=== PATIENT | male | born 1975 | race Caucasian/White ===

== ENCOUNTER 2018-08-07 14:43 | Emergency (ER) | payer MEDICAID ==
[2018-08-07] MEDS ORDERED: NS 500 ML IV ONE (15:45)
--- NOTE | 2018-08-07 15:46 | EDPHY ---
H & P Time Seen by Provider: 08/07/18 15:34 HPI/ROS: CHIEF COMPLAINT: Lumps in my arm pits for months HISTORY OF PRESENT ILLNESS: Patient presents with painful lumps in both armpits for the last several months. He has had multiple attempted drainage and was told the past he needs a surgical procedure to definitively corrected. He presents today with worsening swelling and pain especially in the left arm PICC greater than the right. Not associated with fever or chills or trauma or drainage or weakness or numbness in either arm. Secondary complaint dizzy"feels like crap"after dialysis today. He had a little bit of a cough for the last couple of days, had a 4 hr run, just feels fatigued very tired and dizzy and lightheaded. His weight is at baseline. His run today was about normal for him at dialysis. He has not missed any recent appointments. REVIEW OF SYSTEMS: Eye: no change in vision ENT: no sore throat Cardiac: no chest pain or syncope Pulmonary: No sputum production, shortness of breath, no fever or chills Abdomen: no vomiting, diarrhea, abdominal pain Musculoskeletal: no back pain Skin: As in HPI Neuro: no headache Constitutional: no fever : no urinary symptoms A comprehensive 10 point review of systems is otherwise negative aside from elements mentioned in the history of present illness. PAST MEDICAL HISTORY: Dialysis patient Social history: Nonsmoker General Appearance: Alert and conversant, cooperative. Eyes: No scleral icterus. ENT, Mouth: Normal mucous membranes. Respiratory: Normal respiratory effort, breath sounds equal, lungs are clear to auscultation. Cardiovascular: Regular rate and rhythm. He has a palpable right forearm fistula. Gastrointestinal: Abdomen is soft and non tender. Neurological: Alert, face symmetric, normal motor and sensory in extremities. Skin: He has evidence of hidradenitis suppurativa in both axilla. There is a single 2 cm area of swelling and fluctuance in the left axilla, and a 1 cm area of erythema and induration in the right axilla. Musculoskeletal: No peripheral edema. Psychiatric: Not agitated. Emergency Department course/MDM: Patient has a single area of the that will be drain in his left axilla, will be placed on Keflex because of the erythema in his right armpit. I think he most likely has dialysis disequilibrium syndrome, will get IV fluids normal saline 500 mL, EKG and labs. 1706: Feeling better, plan to discharge with oral antibiotics for his right armpit. Smoking Status: Never smoked Constitutional: Initial Vital Signs Temperature (C) 36.8 C 08/07/18 14:56 Heart Rate 116 H 08/07/18 14:56 Respiratory Rate 20 08/07/18 14:56 Blood Pressure 111/69 08/07/18 14:56 O2 Sat (%) 97 08/07/18 14:56 O2 Delivery Mode Room Air Allergies/Adverse Reactions: iodine Allergy (Verified 08/07/18 14:55) Rash Home Medications: Medication Instructions Recorded Cephalexin [Keflex] 500 mg PO QID #28 cap 08/07/18 Medical Decision Making - Diagnostics EKG Interpretation: 12-lead EKG interpreted by me; official reading is in computer system. My interpretation is sinus rhythm with no ischemic changes. Procedures: Procedure: Abscess drainage. The patient's abscess was located on the []. I obtained verbal consent from the patient to drain the abscess who was informed about the possibility of bleeding and pain. The area was prepped and draped in the usual sterile fashion , with [ ] used for local anesthesia. The abscess was incised with [a #11 scalpel] and a [moderate] amount of purulent drainage was expressed. I irrigated the wound and placed iodoform packing. The patient tolerated the procedure well. The procedure was performed by myself. Differential Diagnosis: Differential considered including but not limited to sepsis, dehydration, dialysis fluid shift, metabolic disorder - Data Points Laboratory Results: Laboratory Results 08/07/18 16:11 08/07/18 16:11 08/07/18 08/07/18 16:11 16:11 WBC 8.11 10^3/uL 10^3/uL (3.80-9.50) RBC 2.93 10^6/uL L 10^6/uL (4.40-6.38) Hgb 9.8 g/dL L g/dL (13.7-17.5) Hct 29.6 % L % (40.0-51.0) MCV 101.0 fL H fL (81.5-99.8) MCH 33.4 pg pg (27.9-34.1) MCHC 33.1 g/dL g/dL (32.4-36.7) RDW 16.8 % H % (11.5-15.2) Plt Count 214 10^3/uL 10^3/uL (150-400) MPV 9.7 fL fL (8.7-11.7) Neut % (Auto) 78.0 % H % (39.3-74.2) Lymph % (Auto) 12.7 % L % (15.0-45.0) Traill % (Auto) 7.9 % % (4.5-13.0) Eos % (Auto) 0.7 % % (0.6-7.6) Baso % (Auto) 0.5 % % (0.3-1.7) Nucleat RBC Rel Count 0.0 % % (0.0-0.2) Absolute Neuts (auto) 6.32 10^3/uL 10^3/uL (1.70-6.50) Absolute Lymphs (auto) 1.03 10^3/uL 10^3/uL (1.00-3.00) Absolute Monos (auto) 0.64 10^3/uL 10^3/uL (0.30-0.80) Absolute Eos (auto) 0.06 10^3/uL 10^3/uL (0.03-0.40) Absolute Basos (auto) 0.04 10^3/uL 10^3/uL (0.02-0.10) Absolute Nucleated RBC 0.00 10^3/uL 10^3/uL (0-0.01) Immature Gran % 0.2 % % (0.0-1.1) Immature Gran # 0.02 10^3/uL 10^3/uL (0.00-0.10) Sodium 140 mEq/L mEq/L (135-145) Potassium 4.9 mEq/L mEq/L (3.3-5.0) Chloride 91 mEq/L L mEq/L (97-110) Carbon Dioxide 40 mEq/l H mEq/l (22-31) Anion Gap 9 mEq/L mEq/L (8-16) BUN 23 mg/dL mg/dL (7-23) Creatinine 3.4 mg/dL H mg/dL (0.7-1.3) Estimated GFR 20 Glucose 117 mg/dL H mg/dL (70-100) Calcium 9.5 mg/dL mg/dL (8.5-10.4) Medications Given: Discontinued Medications Sodium Chloride (Ns) 500 mls @ 1,000 mls/hr IV EDNOW ONE PRN Reason: Protocol Stop: 08/07/18 16:14 Last Admin: 08/07/18 16:12 Dose: 500 mls Departure - Departure Disposition: Home, Routine, Self-Care Clinical Impression: Hidradenitis suppurativa Condition: Good Instructions: Abscess (ED), Hidradenitis Suppurativa (ED) Referrals: Awais Ledesma MD [Medical Doctor] - As per Instructions (surgeon referral to discuss treatment for your ongoing armpit problems) Prescriptions: Cephalexin [Keflex] 500 mg PO QID #28 cap
[2018-08-07 16:30] LABS: PLATELET COUNT 214 10^3/uL (150-400)
--- NOTE | 2018-08-07 17:15 | CPEKG ---
Test Reason : OPEN Blood Pressure : / mmHG Vent. Rate : 088 BPM Atrial Rate : 088 BPM P-R Int : 155 ms QRS Dur : 083 ms QT Int : 346 ms P-R-T Axes : 057 065 078 degrees QTc Int : 419 ms Sinus rhythm Confirmed by Chris Pandya ([id number]) on 08/07/2018 5:14:37 PM Referred By: Confirmed By:Chris Pandya
[2018-08-07 17:49] VITALS: BP 98/54
== END 2018-08-07 17:49 | disposition home or self-care (01) ==
PROC: 0H9CXZZ Drainage of Left Upper Arm Skin, External Approach (ICD-10-PCS; principal; 2018-08-07)
DX: L73.2 Hidradenitis suppurativa (principal); Z99.2 Dependence on renal dialysis

== ENCOUNTER 2018-08-20 02:43 | Emergency (ER) | payer MEDICAID ==
--- NOTE | 2018-08-20 02:54 | EDPHY ---
H & P Stated Complaint: SOB COUGH, DIALYSIS PT Time Seen by Provider: 08/20/18 02:54 HPI/ROS: HPI CHIEF COMPLAINT: Cough HISTORY OF PRESENT ILLNESS: 43-year-old male, history of end-stage renal disease, on dialysis Sunday, completed 3 hr and 15 min of dialysis today. States he got done dialysis at 6:00 p.m.. He went to work he works at [employer] he worked to shift he developed a cough. He states he really nonproductive however feels as if he needs to cough something up. Denies any chest pain. He does complain that he has had coughing spells at work. Developed a headache after started coughing. He denies fever. Denies chills. Denies chest pain. Main complaint ongoing nagging cough. He states he typically gets dialysis for 3 hr and 45 min. There is a little bit short yesterday due to going to work. Past Medical History: End-stage renal disease on hemodialysis Sunday. Past Surgical History: Right arm AV fistula. Social History: Denies drugs alcohol tobacco. Works at [employer]. Family History: Noncontributory ROS REVIEW OF SYSTEMS: 10 Systems were reviewed and negative with the exception of the elements mentioned in the history of present illness. Exam Constitutional nontoxic no acute distress, triage nursing summary reviewed, vital signs reviewed, awake/alert. Vital signs stable. Eyes normal conjunctivae and sclera, EOMI, PERRLA. HENT normal inspection, atraumatic, moist mucus membranes, no epistaxis, neck supple/ no meningismus, no raccoon eyes. Respiratory bronchitic sounding cough on exam with nagging cough Cardiovascular rate normal, regular rhythm, no murmur, no edema, distal pulses normal. Gastrointestinal soft, non-tender, no rebound, no guarding, normal bowel sounds, no distension, no pulsatile mass. Genitourinary no CVA tenderness. Musculoskeletal no midline vertebral tenderness, full range of motion, no calf swelling, no tenderness of extremities, no meningismus, good pulses, neurovascularly intact. Skin pink, warm, & dry, no rash, skin atraumatic. Neurologic awake, alert and oriented x 3, AAOx3, moves all 4 extremities equally, motor intact, sensory intact, CN II-XII intact, normal cerebellar, normal vision, normal speech. Psychiatric normal mood/affect. Heme/Lymph/Immune no lymphadenopathy. Differential Diagnosis: Includes but is not limited to in a particular order acute bronchitis, viral syndrome, pneumonia, bacterial pneumonia, CHF, volume overload comma pleural effusions Medical Decision Making: Plan for this patient chest x-ray two view, DuoNeb breathing treatment, basic blood work, BNP, EKG, troponin re-evaluate. Re-evaluation: 0412: Spoke with Nephrology Dr. Lau, discussed the case in detail. He did not feel that we need to acutely treat the potassium. Nor did he feel that the patient is volume overloaded and needs emergent dialysis. If The patient feels better after breathing treatment and wants to go home he feels comfortable this plan. Patient's chest x-ray is reviewed and unremarkable for volume overload or pneumonia. I did re-evaluate the patient this time 4:15 a.m. And the patient is feeling much better after DuoNeb breathing treatment. He is requesting some Benadryl to help him sleep. He also requests that he would like to rest here for few hours. Then would like to go home. We discussed return precautions understands return emergency room if develops any worsening shortness of breath or not feeling well. EKG interpretation by me on record in [employer] system. Impression time of EKG 3:26 a.m., sinus tach 100. Slightly peaked T-waves in V2 V3. V4. Chemistry panel reviewed. He is not acidotic. K is noted to be 5.4. Patient's vital signs are stable he is not overtly hypertensive or volume overloaded. Not hypoxic. No fever. 0609AM: Patient re-evaluated this time resting comfortably in fact he was sleeping. He would like to go home. He feels fine. He is due to get dialysis tomorrow. Return precautions discussed with him if develops worsening shortness of breath, fever, chest pain return. He understands. Additionally should get dialysis tomorrow. Source: Patient - Personal History Current Tetanus/Diphtheria Vaccine: Yes Current Tetanus Diphtheria and Acellular Pertussis (TDAP): Yes - Medical/Surgical History Hx Asthma: No Hx Chronic Respiratory Disease: No Hx Diabetes: No Hx Cardiac Disease: No Hx Renal Disease: Yes Hx Cirrhosis: No Hx Alcoholism: No Hx HIV/AIDS: No Hx Splenectomy or Spleen Trauma: No Other PMH: dialysis/bilat nephrectomy - Social History Smoking Status: Never smoked Constitutional: Initial Vital Signs Temperature (C) 37.7 C 08/20/18 02:48 Heart Rate 105 H 08/20/18 02:48 Respiratory Rate 18 08/20/18 02:48 Blood Pressure 122/88 H 08/20/18 02:48 O2 Sat (%) 96 08/20/18 02:48 O2 Delivery Mode Room Air Allergies/Adverse Reactions: iodine Allergy (Verified 08/20/18 02:50) Rash Home Medications: Medication Instructions Recorded NK [No Known Home Meds] 08/20/18 Medical Decision Making - Data Points Laboratory Results: Laboratory Results 08/20/18 03:10 08/20/18 03:10 08/20/18 08/20/18 08/20/18 03:14 03:10 03:10 WBC 8.26 10^3/uL 10^3/uL (3.80-9.50) RBC 2.65 10^6/uL L 10^6/uL (4.40-6.38) Hgb 9.0 g/dL L g/dL (13.7-17.5) Hct 27.4 % L % (40.0-51.0) MCV 103.4 fL H fL (81.5-99.8) MCH 34.0 pg pg (27.9-34.1) MCHC 32.8 g/dL g/dL (32.4-36.7) RDW 16.3 % H % (11.5-15.2) Plt Count 210 10^3/uL 10^3/uL (150-400) MPV 10.0 fL fL (8.7-11.7) Neut % (Auto) 78.1 % H % (39.3-74.2) Lymph % (Auto) 13.1 % L % (15.0-45.0) Stokes % (Auto) 7.7 % % (4.5-13.0) Eos % (Auto) 0.4 % L % (0.6-7.6) Baso % (Auto) 0.6 % % (0.3-1.7) Nucleat RBC Rel Count 0.0 % % (0.0-0.2) Absolute Neuts (auto) 6.45 10^3/uL 10^3/uL (1.70-6.50) Absolute Lymphs (auto) 1.08 10^3/uL 10^3/uL (1.00-3.00) Absolute Monos (auto) 0.64 10^3/uL 10^3/uL (0.30-0.80) Absolute Eos (auto) 0.03 10^3/uL 10^3/uL (0.03-0.40) Absolute Basos (auto) 0.05 10^3/uL 10^3/uL (0.02-0.10) Absolute Nucleated RBC 0.00 10^3/uL 10^3/uL (0-0.01) Immature Gran % 0.1 % % (0.0-1.1) Immature Gran # 0.01 10^3/uL 10^3/uL (0.00-0.10) Sodium 141 mEq/L mEq/L (135-145) Potassium 5.4 mEq/L H mEq/L (3.3-5.0) Chloride 90 mEq/L L mEq/L (97-110) Carbon Dioxide 38 mEq/l H mEq/l (22-31) Anion Gap 13 mEq/L mEq/L (6-14) BUN 33 mg/dL H mg/dL (7-23) Creatinine 5.5 mg/dL H mg/dL (0.7-1.3) Estimated GFR 11 Glucose 149 mg/dL H mg/dL (70-100) Calcium 9.0 mg/dL mg/dL (8.5-10.4) POC Troponin I 0.00 ng/mL ng/mL (0.00-0.08) NT-Pro-B Natriuret Pep 4860 pg/mL H pg/mL (0-125) Medications Given: Discontinued Medications Acetaminophen (Tylenol) 1,000 mg PO EDNOW ONE Stop: 08/20/18 04:14 Last Admin: 08/20/18 04:14 Dose: 1,000 mg Albuterol Sulfate (Proventil Inh Prepack) 1 mdi TAKEHOME EDNOW ONE Stop: 08/20/18 04:16 Last Admin: 08/20/18 06:22 Dose: 1 mdi Albuterol/Ipratropium (Duoneb) 3 ml IH EDNOW ONE Stop: 08/20/18 03:01 Last Admin: 08/20/18 03:10 Dose: 3 ml Diphenhydramine HCl (Benadryl Injection) 25 mg IVP EDNOW ONE Stop: 08/20/18 04:13 Last Admin: 08/20/18 04:13 Dose: 25 mg Ibuprofen (Motrin) 800 mg PO EDNOW ONE Stop: 08/20/18 04:13 Last Admin: 08/20/18 04:13 Dose: 800 mg Point of Care Test Results: Chemistry 08/20/18 03:14 POC Troponin I 0.00 ng/mL ng/mL (0.00-0.08) Departure - Departure Disposition: Home, Routine, Self-Care Clinical Impression: Acute bronchitis Qualifiers: Bronchitis organism: other organism Qualified Code(s): J20.8 - Acute bronchitis due to other specified organisms Condition: Good Instructions: Albuterol (By breathing), Acute Bronchitis (ED) Additional Instructions: 1. Return emergency room if you feel worse. Referrals: NONE *PRIMARY CARE P,. [Primary Care Provider] - As per Instructions
[2018-08-20] MEDS ORDERED: IPRATROPIUM/ALBUTEROL 3 ML DEYVIAL ONE (02:58)
[2018-08-20] MEDS ORDERED: ACETAMINOPHEN 500 MG TAB ONE (02:58)
[2018-08-20] MEDS ORDERED: IPRATROPIUM/ALBUTEROL 3 ML DEYVIAL IH ONE (03:00)
[2018-08-20 03:22] LABS: PLATELET COUNT 210 10^3/uL (150-400)
[2018-08-20] MEDS ORDERED: IBUPROFEN 800 MG TAB PO ONE (04:12)
[2018-08-20] MEDS ORDERED: ACETAMINOPHEN 500 MG TAB PO ONE (04:13)
[2018-08-20] MEDS ORDERED: ALBUTEROL INH PREPACK MDI TAKEHOME ONE (04:15)
[2018-08-20 05:53] VITALS: BP 113/55
--- NOTE | 2018-08-22 23:58 | CPEKG ---
Test Reason : OPEN Blood Pressure : / mmHG Vent. Rate : 100 BPM Atrial Rate : 100 BPM P-R Int : 159 ms QRS Dur : 086 ms QT Int : 341 ms P-R-T Axes : 039 026 051 degrees QTc Int : 440 ms Sinus tachycardia Confirmed by Franklin Sanford ([id number]) on 08/22/2018 11:57:50 PM Referred By: Confirmed By:Franklin Sanford
== END 2018-08-20 06:26 | disposition home or self-care (01) ==
DX: J20.9 Acute bronchitis, unspecified (principal); N18.6 End stage renal disease; Z90.5 Acquired absence of kidney; Z99.2 Dependence on renal dialysis
CPT/HCPCS: 84484-PO; 96374; J1200

== ENCOUNTER 2018-10-13 19:25 | Inpatient (IN) | payer MEDICAID ==
[2018-10-13 20:02] LABS: PLATELET COUNT 199 10^3/uL (150-400)
[2018-10-13] MEDS ORDERED: CALCIUM CARBONATE 500 MG TAB PO ONE (20:38)
--- NOTE | 2018-10-13 20:44 | EDPHY ---
H & P Time Seen by Provider: 10/13/18 19:48 HPI/ROS: HPI Dialysis. Feels off, tingly and generalized fatigue. 33-year-old male on foot. This patient has a history of bilateral nephrectomy and he is on hemodialysis. He gets his dialysis on Tuesdays, and Saturdays. He reports that since this afternoon he has been feeling tingly all over his body and has had generalized fatigue. He is requesting that his electrolytes be checked. He denies any focal weakness. No muscle spasms. No other complaints. ROS: Constitutional: No fever, no chills. As above. Eyes: No discharge. No changes in vision. ENT: No sore throat. No nasal congestion or rhinorrhea. Respiratory: No cough. No shortness of breath. Cardiac: No chest pain, no palpitations. Gastrointestinal: No abdominal pain, no vomiting, no diarrhea. Genitourinary: No hematuria. No dysuria or increased frequency with urination. Musculoskeletal: No back pain. No neck pain. No myalgias or arthralgias. No muscle spasms. Skin: No rashes. Neurological: No headache. No focal weakness or altered sensation. As above. Past medical history: Bilateral nephrectomy. Dialysis. Social history: Here by himself. Denies alcohol. Physical Exam: General Appearance: Alert, no distress. This patient is responding to questions appropriately and in full sentences. This patient appears well- hydrated and well-nourished. Eyes: Pupils equal and round no pallor or injection. No lid edema, erythema or injection. Respiratory: There are no retractions, lungs are clear to auscultation with good air movement bilaterally. Cardiovascular: Regular rate and rhythm. No murmur. Gastrointestinal: Abdomen is soft and nontender, no masses, bowel sounds normal. No focal tenderness at McBurney's point. No Wen sign. Neurological: Motor sensory function is grossly intact. Cranial nerves are normal. Gait is normal. Skin: Warm and dry, no rashes. Musculoskeletal: Neck is supple and nontender. Extremities are symmetrical. All joints range without pain or impingement. Psychiatric: No agitation. No depression. Database: EKG: EKG time is 9:04 p.m.; EKG shows a narrow complex normal sinus rhythm with a ventricular rate of 72. Biphasic T-wave in V1, moderately peaked angulated T- waves in V3 through V5, [place] Interval borderline prolonged. The QRS, QT intervals are within normal limits. There are no ST-T wave changes indicative of ischemic or injury pattern. No evidence of right heart strain. Interpreted by me. Imaging: Procedures: Emergency department course: Vital signs reviewed. He is mildly hypertensive. Vital signs are otherwise normal. The patient has been up and ambulatory to the bathroom a couple of times with a normal gait. CBC reviewed. His H&H is slightly above baseline. Electrolyte panel significant for hyperkalemia with a potassium of 7.4. Hypocalcemia at 7.5. Creatinine is 7.7. EKG obtained as above. Patient started on hyperkalemia protocol with insulin and glucose, continuous albuterol and calcium gluconate to be given in the emergency department. Sodium bicarbonate will not be given. The patient is not acidotic. I re-evaluated the patient at 9:10 p.m., I explained the seriousness of his condition. I explained that we would admit him to the hospital for further treatment. 9:15 p.m., spoke with on-call hospitalist Dr. Staton. Case discussed in detail with her. She accepts this patient for admission to the step-down unit. She will consult with Nephrology and further management. Patient's remaining emergency department course under my care has been uneventful. Differential Diagnosis: The differential diagnosis on this patient includes but is not limited to hyperkalemia, hypocalcemia, renal failure, anemia. This represents a partial list of diagnoses considered. These considerations are based on history, physical exam, past history, reassessment and diagnostic testing. Smoking Status: Smoker current status UNK Constitutional: Initial Vital Signs Temperature (C) 36.4 C 10/13/18 19:28 Heart Rate 82 10/13/18 19:28 Respiratory Rate 20 10/13/18 19:28 Blood Pressure 155/89 H 10/13/18 19:28 O2 Sat (%) 100 10/13/18 19:28 O2 Delivery Mode Room Air Allergies/Adverse Reactions: iodine Allergy (Verified 10/15/18 17:11) Rash Home Medications: Medication Instructions Recorded NK [No Known Home Meds] 10/13/18 Medical Decision Making Critical Care Time: I spent a total of 32 minutes of critical care time in obtaining history, performing a physical exam, bedside monitoring of interventions, collecting and interpreting tests and discussion with consultants but not including time spent performing procedures. - Data Points Laboratory Results: Laboratory Results 10/13/18 19:42 10/13/18 19:42 Medications Given: Discontinued Medications Albuterol (Proventil Neb) 12 ml IH EDNOW ONE Stop: 10/13/18 20:58 Last Admin: 10/13/18 21:17 Dose: 12 ml Calcium Carbonate (Oyster Shell Calcium) 1,000 mg PO EDNOW ONE Stop: 10/13/18 20:39 Last Admin: 10/13/18 21:10 Dose: Not Given Calcium Gluconate (Calcium Gluconate) 1 gm IVP EDNOW ONE Stop: 10/13/18 20:58 Last Admin: 10/13/18 21:17 Dose: 1 gm Dextrose (Dextrose 50% Syringe) 25 gm IVP EDNOW ONE Stop: 10/13/18 20:58 Last Admin: 10/13/18 21:17 Dose: 25 gm Diphenhydramine HCl (Benadryl Injection) 25 mg IVP EDNOW ONE Stop: 10/13/18 21:30 Last Admin: 10/13/18 21:31 Dose: 25 mg Diphenhydramine HCl (Benadryl) 25 mg PO ONCE ONE Stop: 10/13/18 22:41 Last Admin: 10/13/18 23:22 Dose: 25 mg Insulin Human Regular (Humulin R) 10 unit IVP EDNOW ONE Stop: 10/13/18 20:58 Last Admin: 10/13/18 21:17 Dose: 10 units Sodium Polystyrene Sulfonate (Kayexalate) 30 gm PO ONCE ONE Stop: 10/13/18 22:35 Last Admin: 10/13/18 23:43 Dose: Not Given Departure - Departure Disposition: [facility] Acute Clinical Impression: Hypocalcemia, Hyperkalemia, Chronic anemia Renal failure Qualifiers: Renal failure chronicity: chronic Chronic kidney disease stage: on chronic dialysis Qualified Code(s): N18.6 - End stage renal disease
[2018-10-13] MEDS ORDERED: CALCIUM GLUC 10% 1 GM/10 ML VIAL IVP ONE (20:57)
[2018-10-13] MEDS ORDERED: ALBUTEROL 3 ML DEYVIAL IH ONE (20:57)
[2018-10-13] MEDS ORDERED: D50W 25 GM/50 ML SYR IVP ONE (20:57)
[2018-10-13] MEDS ORDERED: INSULIN REGULAR HUMAN 100 UNIT/ML UNIT IVP ONE (20:57)
[2018-10-13] MEDS ORDERED: ACETAMINOPHEN 325 MG TAB PO PRN (22:05)
[2018-10-13] MEDS ORDERED: ONDANSETRON DISINTEGRATING 4 MG TAB PO PRN (22:05)
[2018-10-13] MEDS ORDERED: ONDANSETRON 4 MG/2 ML VIAL IVP PRN (22:05)
[2018-10-13] MEDS ORDERED: SODIUM POLY SULF 15 GM/60 ML BOTTLE PO ONE (22:34)
[2018-10-13] MEDS ORDERED: diphenhydrAMINE 25 MG CAP PO ONE (22:40)
--- NOTE | 2018-10-13 22:44 | PDGENHP ---
History and Physical - Chief Complaint weakness, tingling - History of Present Illness 43 yo male with h/o ESRD on dialysis , , Sun, presents to ED with tingling and weakness, worried about his electrolytes. He states he went to dialysis yesterday, but did not have a complete run because he was late. He denies CP or SOB. No weight gain or LE edema. No N/V. No fevers/chills. In the ED, his potassium was elevated to 7.4. EKG showed peaked T waves in lateral leads. He received Calcium gluconate and Insulin/dextrose. He is admitted to the SDU for further management. History Information - Allergies/Home Medication List Allergies/Adverse Reactions: iodine Allergy (Verified 10/13/18 19:28) Rash Home Medications: NK [No Known Home Meds] 10/13/18 [Last Taken Unknown] I have personally reviewed and updated: family history, medical history, social history, surgical history - Past Medical History Additional medical history: esrd, on HD. anemia - Surgical History Additional surgical history: Nephrectomy at age 5, then 2nd nephrectomy 2011. RUE dialysis access - Family History Positive for: non-pertinent - Social History Smoking Status: Smoker current status UNK Alcohol Use: None Drug Use: None Additional social history: Lives in [place]. Works at [employer] in [place]. Review of Systems Review of Systems: ROS: 10pt was reviewed & negative except for what was stated in HPI & below Physical Exam Physical Exam: Temp Pulse Resp BP Pulse Ox 36.8 C 120 H 18 151/86 H 98 10/13/18 22:05 10/13/18 22:05 10/13/18 22:05 10/13/18 22:05 10/13/18 22:05 Constitutional: no apparent distress Eyes: PERRL Ears, Nose, Mouth, Throat: moist mucous membranes Cardiovascular: no murmur, rub, or gallop, tachycardia Respiratory: no respiratory distress, clear to auscultation Skin: warm Musculoskeletal: full muscle strength Neurologic: AAOx3 Psychiatric: interacting appropriately Lab Data & Imaging Review 10/13/18 19:42 10/13/18 19:42 WBC 6.04 10^3/uL (3.80-9.50) 10/13/18 19:42 RBC 3.24 10^6/uL (4.40-6.38) L 10/13/18 19:42 Hgb 10.6 g/dL (13.7-17.5) L 10/13/18 19:42 Hct 33.7 % (40.0-51.0) L 10/13/18 19:42 MCV 104.0 fL (81.5-99.8) H 10/13/18 19:42 MCH 32.7 pg (27.9-34.1) 10/13/18 19:42 MCHC 31.5 g/dL (32.4-36.7) L 10/13/18 19:42 RDW 14.8 % (11.5-15.2) 10/13/18 19:42 Plt Count 199 10^3/uL (150-400) 10/13/18 19:42 MPV 9.9 fL (8.7-11.7) 10/13/18 19:42 Neut % (Auto) 66.8 % (39.3-74.2) 10/13/18 19:42 Lymph % (Auto) 20.4 % (15.0-45.0) 10/13/18 19:42 [place] % (Auto) 10.8 % (4.5-13.0) 10/13/18:42 Eos % (Auto) 0.8 % (0.6-7.6) 10/13/18 19:42 Baso % (Auto) 1.0 % (0.3-1.7) 10/13/18 19:42 Nucleat RBC Rel Count 0.0 % (0.0-0.2) 10/13/18 19:42 Absolute Neuts (auto) 4.04 10^3/uL (1.70-6.50) 10/13/18 19:42 Absolute Lymphs (auto) 1.23 10^3/uL (1.00-3.00) 10/13/18 19:42 Absolute Monos (auto) 0.65 10^3/uL (0.30-0.80) 10/13/18 19:42 Absolute Eos (auto) 0.05 10^3/uL (0.03-0.40) 10/13/18 19:42 Absolute Basos (auto) 0.06 10^3/uL (0.02-0.10) 10/13/18 19:42 Absolute Nucleated RBC 0.00 10^3/uL (0-0.01) 10/13/18 19:42 Immature Gran % 0.2 % (0.0-1.1) 10/13/18 19:42 Immature Gran # 0.01 10^3/uL (0.00-0.10) 10/13/18 19:42 Sodium 141 mEq/L (135-145) 10/13/18 19:42 Potassium 7.4 mEq/L (3.5-5.2) H* 10/13/18 19:42 Chloride 97 mEq/L (97-110) 10/13/18 19:42 Carbon Dioxide 30 mEq/l (22-31) 10/13/18 19:42 Anion Gap 14 mEq/L (6-14) 10/13/18 19:42 BUN 71 mg/dL (7-23) H 10/13/18 19:42 Creatinine 7.7 mg/dL (0.7-1.3) H* 10/13/18 19:42 Estimated GFR 8 10/13/18 19:42 Glucose 129 mg/dL (70-100) H 10/13/18 19:42 Calcium 7.5 mg/dL (8.5-10.4) L 10/13/18 19:42 Ionized Calcium 0.99 MMOL/L (1.12-1.30) L 10/13/18 22:05 Visualized and Interpreted imaging results: Yes EKG Interpretation: Positive for: other (peaked T waves lateral leads) Assessment & Plan Assessment: ESRD with hyperkalemia - EKG changes with peaked T waves noted. s/p calcium gluconate, insulin/dextrose. -admit to SDU on telemetry -repeat chemistries now -will give kayexalate, defer NaHCO3 with nl serum bicarb -discussed with nephrology, who recommends repeat insulin/dextrose tonight, plans for dialysis in am Anemia of CKD - epo per renal Hypocalcemia - s/p calcium gluconate Full code DVT PPLX - SCD's for now Dispo - admit to inpt, anticipate >48 hrs hospitalization for ongoing management of hyperkalemia and ESRD
[2018-10-14 08:01] VITALS: BP 161/94
[2018-10-14] MEDS ORDERED: diphenhydrAMINE 25 MG CAP PO ONE (08:04)
[2018-10-14] MEDS ORDERED: diphenhydrAMINE 25 MG CAP PO PRN (08:10)
--- NOTE | 2018-10-14 09:51 | SOAPPROG ---
FAVIAN Progress Note Assessment/Plan: Assessment: 1. esrd: short hd today for hyperK, hypoCa. Will need typical outpt treatment tomorrow at [facility], he expresses understanding of this. 2. hyperK: better this am s/p medical rx, suspect all dietary. Expect this to be thoroughly rx'd with hd this am, does not need repeat prior to d/c. 3. hypoCa: mild, rx'd with hd. Plan: 10/14/18 09:49 Subjective: Dialyzes TTS at [facility] but works in [place]. Came to ER last night with numbness in hands, found to have hypoCa, hyperK. Rx'd medically, feeling better. Initially refused hd this am but after several discussions relented and is currently dialyzing. No c/o. Planning to d/c after hd this am. Objective: Vital Signs Temp Pulse Resp BP Pulse Ox 36.6 C 85 16 161/94 H 98 10/13/18 22:49 10/14/18 07:59 10/14/18 07:59 10/14/18 07:59 10/14/18 07:59 Laboratory Results 10/14/18 05:41 10/13/18 10/14/18 10/15/18 05:59 05:59 05:59 Intake Total 1400 Balance 1400 Physical Exam - Physical Exam General Appearance: no apparent distress Respiratory: lungs clear (anteriorly) Cardiac/Chest: normal peripheral pulses, regular rate, rhythm Abdomen: soft Extremities: pedal edema (none) ICD10 Worksheet Patient Problems: Problems Problem Status Onset Chronic anemia Acute Hyperkalemia Acute Hypocalcemia Acute Renal failure Acute Epigastric pain Acute High serum creatinine Acute
--- NOTE | 2018-10-14 09:55 | ASMTCMCOM ---
CM Note CM Note Notes: 43yo male admitted for Hyperkalemia, Hypocalcemia, Renal failure. He has a Hx of Bilat Nephrectomies, ESRD-dialysis , , Sat, Anemia. Patient lives in [place] works in [employer]. May not have discharge needs. CM to follow. Date Signed: 10/14/2018 09:54 AM Electronically Signed By:Melissa Bonds LCSW
--- NOTE | 2018-10-14 09:55 | PDMN ---
Medical Necessity Medical necessity: [facility] M325 Chronic Renal Failure: 43 yo w/ hx ESRD on hemodialysis presents w/ tingling/weakness. Pt meets [facility] IP criteria as pt eval reveals K 7.4 w/ peaked T waves on EKG. Admit IP status SDU for tele monitoring, repeat chemistries, nephrology consult, dialysis.
--- NOTE | 2018-10-14 11:19 | ASMTLACE ---
LACE Length of stay for Answers: Less than 1 day current admission Acuity / Level of Answers: Yes Care: Did the patient have an inpatient admission? Comorbidities - select Answers: Moderate or severe liver all that apply or renal disease # of Emergency department Answers: 3-4 visits in the last 6 months Score: 10 Date Signed: 10/14/2018 11:19 AM Electronically Signed By:Melissa Bonds LCSW
--- NOTE | 2018-10-14 11:25 | ASDISCHSUM ---
Discharge Information Plan Status:Home with No Needs Medically Cleared to Leave:10/13/2018 Discharge Date:10/14/2018 11:10 AM CM D/C Disposition:Home, Routine, Self-Care ADT D/C Disposition:Home, Routine, Self-Care Projected Discharge Date:10/14/2018 11:00 AM Transportation at D/C:Bus Ticket Discharge Delay Reason: Follow-Up Date:10/14/2018 11:00 AM Discharge Slot:1 - 8:01 am - 12:00 noon Final Diagnosis:Hyperkalemia, Hypocalcemia, Renal failure Placement Information Patient Contact Information Contact Name:JAY Relationship:Friend Address: Work Phone: City: [facility] Phone: [facility] Code: Email: Financial Information Financial Class:Medicaid Primary Plan Desc:[facility] Primary Plan Number:[id number] Secondary Plan Desc: Secondary Plan Number: Assessment Information LACE LACE Length of stay for Answers: Less than 1 day current admission Acuity / Level of Answers: Yes Care: Did the patient have an inpatient admission? Comorbidities - select Answers: Moderate or severe liver all that apply or renal disease # of Emergency department Answers: 3-4 visits in the last 6 months Score: 10 Date Signed: 10/14/2018 11:19 AM Electronically Signed By:Melissa Bonds LCSW [facility] CM Progress Note CM Note CM Note Notes: 43yo male admitted for Hyperkalemia, Hypocalcemia, Renal failure. He has a Hx of Bilat Nephrectomies, ESRD-dialysis , Th, Sat, Anemia. Patient lives in [place] works in [employer]. May not have discharge needs. CM to follow. Date Signed: 10/14/2018 09:54 AM Electronically Signed By:Melissa Bonds LCSW Case Management Discharge Plan Note Case Management Discharge Discharge Order Complete? Answers: Yes Patient to Obtain Answers: Independently Medications Transportation Arranged Answers: Bus Tokens Discharge Comments Notes: Patient has been discharged home. He was given a bus ticket for transportation. Date Signed: 10/14/2018 11:20 AM Electronically Signed By:Melissa Bonds LCSW Intervention Information Intervention Type:Bus Pass Date of Service:10/14/2018 11:20 AM Patient Type:Inpatient Staff Member:ZI Bonds Judith Hours: Discipline:Medical Pathology Teacher Severity: Comment:
--- NOTE | 2018-10-14 18:58 | GDS ---
DISCHARGE DIAGNOSES: 1. Hyperkalemia with electrocardiogram changes. 2. End-stage renal disease. 3. Anemia of chronic kidney disease. HISTORY: The patient is a 43-year-old male with end-stage renal disease, who presented with tingling and weakness consistent with symptoms he gets when his electrolytes are unregulated. He dialyzed on the day prior to admission, but he did not have a complete run because he was late for his appointme nt. Upon presentation, he was indeed found to be hyperkalemic with a potassium of 7.4, with EKG alcaraz ges, consistent with peaked T-waves. He received calcium gluconate and insulin dextrose. Nephrology was consulted. He was emergently dialyzed. He desired a rapid discharge as soon as dialysis was co mplete. DISCHARGE MEDICATIONS: Please see computerized record for full detailed list. There were no new med ications given at time of hospital discharge. ADDITIONAL DISCHARGE INSTRUCTIONS: Continue to follow up with dialysis as scheduled. /[id number]/MODL
== END 2018-10-14 11:10 | disposition home or self-care (01) | DRG 425 ==
LOC: F2N 22:15
PROVIDERS: ADMIT Family Medicine; ATTEND Family Medicine
DX: E87.5 Hyperkalemia (principal); E83.51 Hypocalcemia; N18.6 End stage renal disease; D63.1 Anemia in chronic kidney disease; Z90.5 Acquired absence of kidney; Z99.2 Dependence on renal dialysis
CPT/HCPCS: 96374; J0610; J1200; J1815; J7613

== ENCOUNTER 2018-10-15 17:05 | Emergency (ER) | payer MEDICAID ==
--- NOTE | 2018-10-15 17:52 | EDPHY ---
H & P Time Seen by Provider: 10/15/18 17:34 HPI/ROS: Chief complaint. Weakness, tingling HPI. Patient is 43-year-old male with history of bilateral nephrectomy here with complaints weakness and bilateral leg tingling. Some heaviness in his chest. He had been on Sunday dialysis schedule and has just changed to Sunday so he did not get dialysis today. Last dialysis was yesterday morning. He was admitted for hyperkalemia October 13 was 2 days ago and then got dialysis yesterday morning. He was treated with usual cocktail while awaiting dialysis. Denies fever cough. ROS 10 systems were reviewed and negative with the exception of the elements mentioned in the history of present illness Past Medical/Surgical History: Bilateral nephrectomy on dialysis, AV fistula Social History: Single, nonsmoker, no alcohol Smoking Status: Never smoked Physical Exam: General Appearance: Alert well-developed male mild distress vital signs are stable Eyes: Pupils equal and round no pallor or injection. ENT, Mouth: Mucous membranes are moist. Respiratory: There are no retractions, lungs are clear to auscultation. Cardiovascular: Regular rate and rhythm. Gastrointestinal: Abdomen is soft and nontender, no masses, bowel sounds normal. Neurological: Awake and alert, sensory and motor exams grossly normal. Skin: Warm and dry, no rashes. Musculoskeletal: Neck is supple nontender. Extremities symmetrical, full range of motion. Psychiatric: Patient is oriented X 3, there is no agitation. Constitutional: Initial Vital Signs Temperature (C) 36.6 C 10/15/18 17:11 Heart Rate 77 10/15/18 17:11 Respiratory Rate 16 10/15/18 17:11 Blood Pressure 149/96 H 10/15/18 17:11 O2 Sat (%) 97 10/15/18 17:11 O2 Delivery Mode Room Air Allergies/Adverse Reactions: iodine Allergy (Verified 10/15/18 17:11) Rash Home Medications: Medication Instructions Recorded NK [No Known Home Meds] 10/13/18 Medical Decision Making - Diagnostics EKG Interpretation: EKG interpreted by me shows normal sinus rhythm with normal interval and axis. QRS is normal. There are peaked T-waves throughout. Rate is about 80. . Procedures: I-STAT shows potassium to be 7.8 and creatinine 8.6 ED Course/Re-evaluation: Patient is given continuous albuterol nebulizer, calcium gluconate, insulin, D50 , Kayexalate Patient develops hyperglycemia with a blood sugar of about 39. He is given half amp of D 50 and oral juice. He subsequently feels well. Repeat potassium is between 5.4 and 5.7 Patient and I discussed laboratory evaluation and treatment plan and recommendation for admission for dialysis. The patient refuses as he tells me has not work. He plans to go to dialysis 1st thing in the morning when they open at 5:30 a.m.. I had seen the patient about 1 month ago and is also was the plan the patient refuses admission went to dialysis early in the morning. He is encouraged to return tonight for any worsening symptoms Differential Diagnosis: Hyperkalemia in a patient with bilateral nephrectomy and chronic dialysis. We have given the patient shift or is as well as Kayexalate for potassium finding and excretion. He refuses admission. He does have EKG changes. - Data Points Laboratory Results: Laboratory Results 10/15/18 17:43 10/15/18 17:43 10/15/18 10/15/18 10/15/18 19:41 19:16 17:49 WBC RBC Hgb POC Hgb 10.5 gm/dL L gm/dL 10.5 gm/dL L gm/dL 11.2 gm/dL L gm/dL (13.7-17.5) (13.7-17.5) (13.7-17.5) Hct POC Hct 31 % L % 31 % L % 33 % L % (40-51) (40-51) (40-51) MCV MCH MCHC RDW Plt Count MPV Neut % (Auto) Lymph % (Auto) [place] % (Auto) Eos % (Auto) Baso % (Auto) Nucleat RBC Rel Count Absolute Neuts (auto) Absolute Lymphs (auto) Absolute Monos (auto) Absolute Eos (auto) Absolute Basos (auto) Absolute Nucleated RBC Immature Gran % Immature Gran # POC Sodium 141 mEq/L mEq/L 142 mEq/L mEq/L 138 mEq/L mEq/L (135-145) (135-145) (135-145) Sodium POC Potassium 5.7 mEq/L H mEq/L 5.4 mEq/L H mEq/L 7.8 mEq/L H* mEq/L (3.3-5.0) (3.3-5.0) (3.3-5.0) Potassium POC Chloride 101 mEq/L mEq/L 103 mEq/L mEq/L 98 mEq/L mEq/L (97-110) (97-110) (97-110) Chloride Carbon Dioxide Anion Gap POC BUN 63 mg/dL H mg/dL 61 mg/dL H mg/dL 59 mg/dL H mg/dL (7-23) (7-23) (7-23) BUN Creatinine POC Creatinine 8.7 mg/dL H* mg/dL 8.5 mg/dL H* mg/dL 8.6 mg/dL H* mg/dL (0.7-1.3) (0.7-1.3) (0.7-1.3) Estimated GFR Glucose POC Glucose 70 mg/dL mg/dL 39 mg/dL L* mg/dL 92 mg/dL mg/dL (70-100) (70-100) (70-100) Calcium 10/15/18 10/15/18 17:43 17:43 WBC 6.65 10^3/uL 10^3/uL (3.80-9.50) RBC 3.17 10^6/uL L 10^6/uL (4.40-6.38) Hgb 10.6 g/dL L g/dL (13.7-17.5) POC Hgb Hct 33.0 % L % (40.0-51.0) POC Hct MCV 104.1 fL H fL (81.5-99.8) MCH 33.4 pg pg (27.9-34.1) MCHC 32.1 g/dL L g/dL (32.4-36.7) RDW 15.0 % % (11.5-15.2) Plt Count 186 10^3/uL 10^3/uL (150-400) MPV 9.6 fL fL (8.7-11.7) Neut % (Auto) 70.4 % % (39.3-74.2) Lymph % (Auto) 18.6 % % (15.0-45.0) [place] % (Auto) 8.7 % % (4.5-13.0) Eos % (Auto) 1.5 % % (0.6-7.6) Baso % (Auto) 0.6 % % (0.3-1.7) Nucleat RBC Rel Count 0.0 % % (0.0-0.2) Absolute Neuts (auto) 4.68 10^3/uL 10^3/uL (1.70-6.50) Absolute Lymphs (auto) 1.24 10^3/uL 10^3/uL (1.00-3.00) Absolute Monos (auto) 0.58 10^3/uL 10^3/uL (0.30-0.80) Absolute Eos (auto) 0.10 10^3/uL 10^3/uL (0.03-0.40) Absolute Basos (auto) 0.04 10^3/uL 10^3/uL (0.02-0.10) Absolute Nucleated RBC 0.00 10^3/uL 10^3/uL (0-0.01) Immature Gran % 0.2 % % (0.0-1.1) Immature Gran # 0.01 10^3/uL 10^3/uL (0.00-0.10) POC Sodium Sodium TNP POC Potassium Potassium TNP POC Chloride Chloride TNP Carbon Dioxide TNP Anion Gap TNP POC BUN BUN TNP Creatinine TNP POC Creatinine Estimated GFR TNP Glucose TNP POC Glucose Calcium TNP Medications Given: Discontinued Medications Albuterol (Proventil Neb) 12 ml IH EDNOW ONE Stop: 10/15/18 17:58 Last Admin: 10/15/18 18:26 Dose: 12 ml Calcium Gluconate (Calcium Gluconate) 1 gm IVP EDNOW ONE Stop: 10/15/18 17:58 Last Admin: 10/15/18 18:26 Dose: 1 gm Dextrose (Dextrose 50% Syringe) 25 gm IVP EDNOW ONE Stop: 10/15/18 17:58 Last Admin: 10/15/18 18:32 Dose: 25 gm Dextrose (Dextrose 50% Syringe) 12.5 gm IVP EDNOW ONE Stop: 10/15/18 19:20 Last Admin: 10/15/18 19:20 Dose: 12.5 gm Diphenhydramine HCl (Benadryl) 25 mg PO EDNOW ONE Stop: 10/15/18 18:55 Last Admin: 10/15/18 19:12 Dose: Not Given Insulin Human Regular (Humulin R) 10 unit IVP EDNOW ONE Stop: 10/15/18 17:58 Last Admin: 10/15/18 18:31 Dose: 10 units Sodium Polystyrene Sulfonate (Kayexalate) 30 gm PO EDNOW ONE Stop: 10/15/18 17:58 Last Admin: 10/15/18 18:32 Dose: 30 gm Point of Care Test Results: Chemistry 10/15/18 10/15/18 10/15/18 19:41 19:16 17:49 POC Sodium 141 mEq/L mEq/L 142 mEq/L mEq/L 138 mEq/L mEq/L (135-145) (135-145) (135-145) POC Potassium 5.7 mEq/L H mEq/L 5.4 mEq/L H mEq/L 7.8 mEq/L H* mEq/L (3.3-5.0) (3.3-5.0) (3.3-5.0) POC Chloride 101 mEq/L mEq/L 103 mEq/L mEq/L 98 mEq/L mEq/L (97-110) (97-110) (97-110) POC BUN 63 mg/dL H mg/dL 61 mg/dL H mg/dL 59 mg/dL H mg/dL (7-23) (7-23) (7-23) POC Creatinine 8.7 mg/dL H* mg/dL 8.5 mg/dL H* mg/dL 8.6 mg/dL H* mg/dL (0.7-1.3) (0.7-1.3) (0.7-1.3) POC Glucose 70 mg/dL mg/dL 39 mg/dL L* mg/dL 92 mg/dL mg/dL (70-100) (70-100) (70-100) ISTAT H&H 10/15/18 10/15/18 10/15/18 19:41 19:16 17:49 POC Hgb 10.5 gm/dL L gm/dL 10.5 gm/dL L gm/dL 11.2 gm/dL L gm/dL (13.7-17.5) (13.7-17.5) (13.7-17.5) POC Hct 31 % L % 31 % L % 33 % L % (40-51) (40-51) (40-51) Departure - Departure Disposition: Home, Routine, Self-Care Clinical Impression: Hyperkalemia Renal failure Qualifiers: Renal failure chronicity: chronic Chronic kidney disease stage: on chronic dialysis Qualified Code(s): N18.6 - End stage renal disease Condition: Good Instructions: Hyperkalemia (ED) Additional Instructions: Make sure you get dialysis tomorrow morning. Return tonight for worsening symptoms. Referrals: NONE *PRIMARY CARE P,. [Primary Care Provider] - As per Instructions
[2018-10-15] MEDS ORDERED: SODIUM POLY SULF 15 GM/60 ML BOTTLE PO ONE (17:57)
[2018-10-15] MEDS ORDERED: INSULIN REGULAR HUMAN 100 UNIT/ML UNIT IVP ONE (17:57)
[2018-10-15] MEDS ORDERED: D50W 25 GM/50 ML SYR IVP ONE ×3 (17:57→19:19)
[2018-10-15] MEDS ORDERED: ALBUTEROL 3 ML DEYVIAL IH ONE (17:57)
[2018-10-15] MEDS ORDERED: CALCIUM GLUC 10% 1 GM/10 ML VIAL IVP ONE (17:57)
[2018-10-15 18:00] LABS: PLATELET COUNT 186 10^3/uL (150-400)
[2018-10-15] MEDS ORDERED: diphenhydrAMINE 25 MG CAP PO ONE (18:54)
[2018-10-15 20:19] VITALS: BP 186/109
--- NOTE | 2018-10-15 21:15 | CPEKG ---
Test Reason : OPEN Blood Pressure : / mmHG Vent. Rate : 183 BPM Atrial Rate : 079 BPM P-R Int : 205 ms QRS Dur : 091 ms QT Int : 207 ms P-R-T Axes : 036 035 000 degrees QTc Int : 361 ms NSR Peak T waves--hyperkalemia Nonspecific T abnormalities, lateral leads Confirmed by Beny Gallardo ([id number]) on 10/15/2018 9:14:28 PM Referred By: Confirmed By:Beny Gallardo
== END 2018-10-15 20:19 | disposition home or self-care (01) ==
DX: E87.5 Hyperkalemia (principal); N18.6 End stage renal disease; Z90.5 Acquired absence of kidney
CPT/HCPCS: 82435-PO; 82565-PO; 82947-PO; 84132-PO; 84295-PO; 84520-PO; 85014-PO; 96374; J0610; J1815; J7613

== ENCOUNTER 2018-10-27 15:36 | Emergency (ER) | payer MEDICAID ==
--- NOTE | 2018-10-27 16:06 | EDPHY ---
H & P Time Seen by Provider: 10/27/18 15:38 HPI/ROS: HPI Chest tightness, fatigue, concern potassium is high. 43-year-old male on foot. This patient is very familiar to our emergency department staff. This patient has a history of a bilateral nephrectomy. He undergoes dialysis Sunday and Sunday. He presents the emergency department with complaint of a sensation of fatigue and concerned that his potassium SI. He also states that he feels a tightness in his chest. He was just seen in our emergency department on October 15 for the same complaint and I saw him approximately 2 weeks prior to this. On October 15 his potassium was 7.8. He had a similar elevation of his potassium and I saw him 2 weeks ago. His usual emergency department course is that he gets medicated for acute hyperkalemia then refuses admission and walks out of the emergency department. He states that he is on scheduled to be dialyzed tomorrow. ROS: Constitutional: No fever, no chills. As above. Eyes: No discharge. No changes in vision. ENT: No sore throat. No nasal congestion or rhinorrhea. Respiratory: No cough. No shortness of breath. Cardiac: As above, no palpitations. Gastrointestinal: No abdominal pain, no vomiting, no diarrhea. Genitourinary: No hematuria. No dysuria or increased frequency with urination. Musculoskeletal: No back pain. No neck pain. No myalgias or arthralgias. Skin: No rashes. Neurological: No headache. No focal weakness or altered sensation. Past medical history: Bilateral nephrectomy on dialysis Sunday, Sunday, Sunday. AV fistula. Social history: Here by himself. Single, nonsmoker. Denies alcohol. Physical Exam: General Appearance: Alert, no distress. This patient is responding to questions appropriately and in full sentences. This patient appears well- hydrated and well-nourished. Eyes: Pupils equal and round no pallor or injection. No lid edema, erythema or injection. Respiratory: There are no retractions, lungs are clear to auscultation with good air movement bilaterally. Cardiovascular: Regular rate and rhythm. No murmur. Gastrointestinal: Abdomen is soft and nontender, no masses, bowel sounds normal. No focal tenderness at McBurney's point. No Wen sign. Neurological: Motor sensory function is grossly intact. Cranial nerves are normal. Gait is normal. Skin: Warm and dry, no rashes. Musculoskeletal: Neck is supple and nontender. Extremities are symmetrical. All joints range without pain or impingement. Psychiatric: No agitation. No depression. Database: EKG: EKG time is 3:47 p.m.; EKG shows a narrow complex normal sinus rhythm with a ventricular rate of 69. QS waves noted in lead V1 and V2. Slightly peaked T- waves noted in V3 and V4 but not nearly is concerning as findings on previous EKGs IR out on this patient. The CT, QRS, QT intervals are within normal limits. There are no ST-T wave changes indicative of ischemic or injury pattern. No evidence of right heart strain. Interpreted by me. Imaging: Chest x-ray PA and lateral; the cardiac mediastinal silhouette is unremarkable. No evidence of infiltrate or pneumothorax. No acute cardiopulmonary disease process noted. Interpreted by me. Procedures: Emergency department course: Triage vital signs reviewed. He is moderately hypertensive. Vital signs are otherwise normal. He is afebrile. IV established. EKG obtained and reviewed by myself. Electrolyte panel to be obtained. Further management will be based on his potassium. I asked the patient if he would stay in the hospital if his potassium was significantly high and required emergency department management for hyperkalemia. He stated that he would not. This is his usual course of action. I-STAT potassium is 6.8. Patient will initially be treated with glucose and insulin and given 1 g of calcium gluconate. Sodium bicarbonate treatment will be initiated if he is acidotic. 5:15 p.m., the patient was re-evaluated, repeat potassium is 4.8. Blood sugars 41. Patient states that he is feeling better. He was given an amp of D50 and some juice and crackers. He is asking for discharge at this time. 5:45 p.m., the patient was re-evaluated, repeat blood sugar is 72, he is eating crackers and drinking juice, blood sugars currently, he is feeling much better and has no complaints. He is requesting discharge. This is his usual course of action in the emergency department. Again I stressed that it was important for him to be admitted so we could further treat his hyperkalemia. I also asked him to stay awhile longer so we could check his blood sugar 1 more time. He does not want to do this. In my professional opinion he understands this and has capacitance to make decisions. He has decided he wants to leave the emergency department against medical advice. He will be given a 1 time dose of 30 mg of Kayexalate to take home as he has requested. He does not want to take this before going to work wants to take it this evening in 3 hr when he returns from work. He understands that he is to go to his dialysis clinic for dialysis tomorrow. Return to emergency department precautions were stressed to him. All of his questions were answered. He was discharged from the emergency department in good condition. Differential Diagnosis: The differential diagnosis on this patient includes but is not limited to end- stage renal disease on dialysis, hyperkalemia. This represents a partial list of diagnoses considered. These considerations are based on history, physical exam, past history, reassessment and diagnostic testing. Smoking Status: Never smoked Constitutional: Initial Vital Signs Temperature (C) 36.4 C 10/27/18 15:39 Heart Rate 72 10/27/18 15:39 Respiratory Rate 16 10/27/18 15:39 Blood Pressure 159/95 H 10/27/18 15:39 O2 Sat (%) 97 10/27/18 15:39 O2 Delivery Mode Room Air Allergies/Adverse Reactions: iodine Allergy (Verified 10/27/18 15:39) Rash Home Medications: Medication Instructions Recorded NK [No Known Home Meds] 10/13/18 Medical Decision Making - Diagnostics Imaging Results: Imaging Impressions Chest X-Ray 10/27/18 15:43 Impression: Normal chest x-ray. - Data Points Laboratory Results: Laboratory Results 10/27/18 15:56 10/27/18 15:56 10/27/18 10/27/18 10/27/18 17:51 17:14 16:24 WBC RBC Hgb POC Hgb 12.9 gm/dL L gm/dL (13.7-17.5) Hct POC Hct 38 % L % (40-51) MCV MCH MCHC RDW Plt Count MPV Neut % (Auto) Lymph % (Auto) Tompkins % (Auto) Eos % (Auto) Baso % (Auto) Nucleat RBC Rel Count Absolute Neuts (auto) Absolute Lymphs (auto) Absolute Monos (auto) Absolute Eos (auto) Absolute Basos (auto) Absolute Nucleated RBC Immature Gran % Immature Gran # POC Sodium 139 mEq/L mEq/L (135-145) Sodium POC Potassium 4.8 mEq/L mEq/L (3.3-5.0) Potassium POC Chloride 96 mEq/L L mEq/L (97-110) Chloride Carbon Dioxide Anion Gap POC BUN 73 mg/dL H mg/dL (7-23) BUN Creatinine POC Creatinine 8.2 mg/dL H* mg/dL (0.7-1.3) Estimated GFR Glucose POC Glucose 71 mg/dL mg/dL 41 mg/dL L mg/dL (70-100) (70-100) Calcium POC Troponin I 0.01 ng/mL ng/mL (0.00-0.08) 10/27/18 10/27/18 10/27/18 16:05 15:56 15:56 WBC 7.70 10^3/uL 10^3/uL (3.80-9.50) RBC 3.51 10^6/uL L 10^6/uL (4.40-6.38) Hgb 11.5 g/dL L g/dL (13.7-17.5) POC Hgb 12.2 gm/dL L gm/dL (13.7-17.5) Hct 35.9 % L % (40.0-51.0) POC Hct 36 % L % (40-51) MCV 102.3 fL H fL (81.5-99.8) MCH 32.8 pg pg (27.9-34.1) MCHC 32.0 g/dL L g/dL (32.4-36.7) RDW 15.4 % H % (11.5-15.2) Plt Count 205 10^3/uL 10^3/uL (150-400) MPV 10.5 fL fL (8.7-11.7) Neut % (Auto) 63.6 % % (39.3-74.2) Lymph % (Auto) 23.2 % % (15.0-45.0) Tompkins % (Auto) 9.4 % % (4.5-13.0) Eos % (Auto) 2.5 % % (0.6-7.6) Baso % (Auto) 1.0 % % (0.3-1.7) Nucleat RBC Rel Count 0.0 % % (0.0-0.2) Absolute Neuts (auto) 4.90 10^3/uL 10^3/uL (1.70-6.50) Absolute Lymphs (auto) 1.79 10^3/uL 10^3/uL (1.00-3.00) Absolute Monos (auto) 0.72 10^3/uL 10^3/uL (0.30-0.80) Absolute Eos (auto) 0.19 10^3/uL 10^3/uL (0.03-0.40) Absolute Basos (auto) 0.08 10^3/uL 10^3/uL (0.02-0.10) Absolute Nucleated RBC 0.00 10^3/uL 10^3/uL (0-0.01) Immature Gran % 0.3 % % (0.0-1.1) Immature Gran # 0.02 10^3/uL 10^3/uL (0.00-0.10) POC Sodium 136 mEq/L mEq/L (135-145) Sodium 135 mEq/L mEq/L (135-145) POC Potassium 6.9 mEq/L H* mEq/L (3.3-5.0) Potassium 6.9 mEq/L H* mEq/L (3.5-5.2) POC Chloride 96 mEq/L L mEq/L (97-110) Chloride 93 mEq/L L mEq/L (97-110) Carbon Dioxide 27 mEq/l mEq/l (22-31) Anion Gap 15 mEq/L H mEq/L (6-14) POC BUN 72 mg/dL H mg/dL (7-23) BUN 74 mg/dL H mg/dL (7-23) Creatinine 8.2 mg/dL H* mg/dL (0.7-1.3) POC Creatinine 8.7 mg/dL H* mg/dL (0.7-1.3) Estimated GFR 7 Glucose 100 mg/dL mg/dL (70-100) POC Glucose 100 mg/dL mg/dL (70-100) Calcium 7.4 mg/dL L mg/dL (8.5-10.4) POC Troponin I Medications Given: Discontinued Medications Calcium Gluconate (Calcium Gluconate) 1 gm IVP EDNOW ONE Stop: 10/27/18 16:12 Last Admin: 10/27/18 16:30 Dose: 1 gm Dextrose (Dextrose 50% Syringe) 25 gm IVP EDNOW ONE Stop: 10/27/18 16:12 Last Admin: 10/27/18 16:35 Dose: 25 gm Dextrose (Dextrose 50% Syringe) 25 gm IVP EDNOW ONE Stop: 10/27/18 17:21 Last Admin: 10/27/18 17:19 Dose: 25 gm Insulin Human Regular (Humulin R) 10 unit IVP EDNOW ONE Stop: 10/27/18 16:12 Last Admin: 10/27/18 16:39 Dose: 10 units Sodium Polystyrene Sulfonate (Kayexalate) 30 gm PO EDNOW ONE Stop: 10/27/18 17:23 Last Admin: 10/27/18 17:25 Dose: 30 gm Point of Care Test Results: Chemistry 10/27/18 10/27/18 10/27/18 17:51 17:14 16:24 POC Sodium 139 mEq/L mEq/L (135-145) POC Potassium 4.8 mEq/L mEq/L (3.3-5.0) POC Chloride 96 mEq/L L mEq/L (97-110) POC BUN 73 mg/dL H mg/dL (7-23) POC Creatinine 8.2 mg/dL H* mg/dL (0.7-1.3) POC Glucose 71 mg/dL mg/dL 41 mg/dL L mg/dL (70-100) (70-100) POC Troponin I 0.01 ng/mL ng/mL (0.00-0.08) 10/27/18 16:05 POC Sodium 136 mEq/L mEq/L (135-145) POC Potassium 6.9 mEq/L H* mEq/L (3.3-5.0) POC Chloride 96 mEq/L L mEq/L (97-110) POC BUN 72 mg/dL H mg/dL (7-23) POC Creatinine 8.7 mg/dL H* mg/dL (0.7-1.3) POC Glucose 100 mg/dL mg/dL (70-100) POC Troponin I ISTAT H&H 10/27/18 10/27/18 17:14 16:05 POC Hgb 12.9 gm/dL L gm/dL 12.2 gm/dL L gm/dL (13.7-17.5) (13.7-17.5) POC Hct 38 % L % 36 % L % (40-51) (40-51) Departure - Departure Disposition: Home, Routine, Self-Care Clinical Impression: End stage renal disease, Hyperkalemia Condition: Good Instructions: Hyperkalemia (ED), End Stage Kidney Disease (ED) Additional Instructions: Read and follow provided instructions. You can take 30 g of oral Kayexalate when you return home from work this evening as discussed. Follow-up for dialysis as scheduled at your clinic tomorrow. It is very important that you get dialysis tomorrow. Return to the emergency department for worsening symptoms or other serious concerns. Referrals: NONE *PRIMARY CARE P,. [Primary Care Provider] - As per Instructions
[2018-10-27] MEDS ORDERED: D50W 25 GM/50 ML SYR IVP ONE ×3 (16:11→17:20)
[2018-10-27] MEDS ORDERED: CALCIUM GLUC 10% 1 GM/10 ML VIAL IVP ONE (16:11)
[2018-10-27] MEDS ORDERED: INSULIN REGULAR HUMAN 100 UNIT/ML UNIT IVP ONE (16:11)
[2018-10-27 16:15] LABS: PLATELET COUNT 205 10^3/uL (150-400)
[2018-10-27] MEDS ORDERED: INSULIN REGULAR HUMAN 100 UNIT/ML UNIT ONE (16:24)
[2018-10-27] MEDS ORDERED: SODIUM POLY SULF 15 GM/60 ML BOTTLE PO ONE (17:22)
[2018-10-27 17:29] VITALS: BP 159/97
--- NOTE | 2018-10-28 21:29 | CPEKG ---
Test Reason : OPEN Blood Pressure : / mmHG Vent. Rate : 069 BPM Atrial Rate : 069 BPM P-R Int : 183 ms QRS Dur : 090 ms QT Int : 417 ms P-R-T Axes : -34 009 056 degrees QTc Int : 447 ms Sinus rhythm Probable anteroseptal infarct, old Confirmed by Amelie Holcomb ([id number]) on 10/28/2018 9:28:54 PM Referred By: Confirmed By:Amelie Holcomb
== END 2018-10-27 17:56 | disposition home or self-care (01) ==
DX: N18.6 End stage renal disease (principal); E87.5 Hyperkalemia; R07.9 Chest pain, unspecified
CPT/HCPCS: 82435-PO; 82565-PO; 82947-PO; 84132-PO; 84295-PO; 84484-ER; 84520-PO; 85014-PO; 96374; J0610; J1815

== ENCOUNTER 2018-11-19 16:09 | Emergency (ER) | payer MEDICAID ==
[2018-11-19] MEDS ORDERED: CALCIUM GLUC 10% 1 GM/10 ML VIAL IVP ONE (17:51)
[2018-11-19] MEDS ORDERED: INSULIN REGULAR HUMAN 100 UNIT/ML UNIT IVP ONE (17:51)
[2018-11-19] MEDS ORDERED: D50W 25 GM/50 ML SYR IVP ONE (17:51)
[2018-11-19 17:52] LABS: PLATELET COUNT 207 10^3/uL (150-400)
[2018-11-19 18:00] LABS: INR 0.96 (0.83-1.16)
--- NOTE | 2018-11-19 18:35 | EDPHY ---
H & P Time Seen by Provider: 11/19/18 17:23 HPI/ROS: HPI Needs dialysis, fatigue, shortness of breath. 43-year-old male on foot. He is very familiar to our emergency department. This is the 3rd time I have seen him in the last several months. He has a history of a bilateral nephrectomy. He gets his dialysis on Sunday, Sunday and Sunday. He is scheduled for dialysis at 5:45 a.m. Tomorrow morning. He presents to the emergency department with these complaints and often has severely elevated potassiums. We treat his elevated potassium acutely in the emergency department and then he refuses admission and leaves against medical advice. He is here with the same complaint now and states that he again wants his potassium treated acutely but then he will leave and get dialyzed tomorrow morning as scheduled. ROS: Constitutional: No fever, no chills. As above. Respiratory: No cough. As above. Cardiac: No chest pain, no palpitations. Gastrointestinal: No abdominal pain, no vomiting, no diarrhea. Skin: No rashes. Neurological: No headache. No focal weakness or altered sensation. Past medical history: As above, right upper extremity AV fistula. Social history: Here by himself. Single. Nonsmoker. Denies alcohol. Physical Exam: General Appearance: Alert, no distress. This patient is responding to questions appropriately and in full sentences. This patient appears well- hydrated and well-nourished. Eyes: Pupils equal and round no pallor or injection. No lid edema, erythema or injection. Respiratory: There are no retractions, lungs are clear to auscultation anteriorly with good air movement bilaterally. Cardiovascular: Regular rate and rhythm. No murmur. Gastrointestinal: Abdomen is soft and nontender, no masses, bowel sounds normal. No focal tenderness at McBurney's point. No Wen sign. Neurological: Motor sensory function is grossly intact. Cranial nerves are normal. Gait is normal. Skin: Warm and dry, no rashes. Musculoskeletal: Neck is supple and nontender. Extremities are symmetrical. All joints range without pain or impingement. Psychiatric: No agitation. No depression. Database: EKG: EKG time is 5:21 p.m.; EKG shows a narrow complex normal sinus rhythm with a ventricular rate of 67. MO interval is borderline prolonged. The QRS, QT intervals are within normal limits. There are no ST-T wave changes indicative of ischemic or injury pattern. No evidence of right heart strain. Interpreted by me. Imaging: Chest x-ray AP portable; the cardiac mediastinal silhouette is unremarkable. No evidence of infiltrate or pneumothorax. No acute cardiopulmonary disease process noted. Interpreted by me. Procedures: Emergency department course: Triage vital signs reviewed. He is hypertensive at 160/96. Vital signs are otherwise normal. IV placed. EKG obtained and reviewed by myself. Patient was given his usual emergency department hyperkalemic protocol including calcium gluconate and insulin and glucose. 6:35 p.m., patient re-evaluated, he is resting comfortably at this time. He is now requesting discharge which is his usual MO. He is asking for Kayexalate on discharge which he usually does as well. He will be given Kayexalate to take home. I also discussed his elevated D-dimer. This study was ordered from triage erroneously. I discussed obtaining CT imaging to evaluate for pulmonary embolism. He declines this test and again request discharge immediately. In my professional opinion he clearly understands the risks to his health and life by leaving the emergency department against medical advice and not obtaining further emergent treatment and evaluation for his hyperkalemia. He clearly demonstrates the capacitance to make decisions. He is scheduled for his dialysis at 5:45 a.m. Tomorrow morning. Follow-up and return to emergency department precautions reviewed with him. All of his questions were answered. He was discharged from the emergency department against medical advise. Differential Diagnosis: The differential diagnosis on this patient includes but is not limited to renal failure, on dialysis, hyperkalemia. This represents a partial list of diagnoses considered. These considerations are based on history, physical exam , past history, reassessment and diagnostic testing. Smoking Status: Never smoked Constitutional: Initial Vital Signs Temperature (C) 36.5 C 11/19/18 16:19 Heart Rate 75 11/19/18 16:19 Respiratory Rate 16 11/19/18 16:19 Blood Pressure 160/96 H 11/19/18 16:19 O2 Sat (%) 97 11/19/18 16:19 O2 Delivery Mode Room Air O2 (L/minute) 0 Allergies/Adverse Reactions: iodine Allergy (Verified 10/27/18 15:39) Rash Home Medications: Medication Instructions Recorded NK [No Known Home Meds] 10/13/18 Medical Decision Making - Data Points Laboratory Results: Laboratory Results 11/19/18 17:37 11/19/18 17:37 Medications Given: Discontinued Medications Calcium Gluconate (Calcium Gluconate) 1 gm IVP EDNOW ONE Stop: 11/19/18 17:52 Last Admin: 11/19/18 18:01 Dose: 1 gm Dextrose (Dextrose 50% Syringe) 25 gm IVP EDNOW ONE Stop: 11/19/18 17:52 Last Admin: 11/19/18 18:00 Dose: 25 gm Insulin Human Regular (Humulin R) 10 unit IVP EDNOW ONE Stop: 11/19/18 17:52 Last Admin: 11/19/18 18:00 Dose: 10 units Sodium Polystyrene Sulfonate (Kayexalate) 15 gm PO EDNOW ONE Stop: 11/19/18 18:41 Last Admin: 11/19/18 19:07 Dose: 15 gm Point of Care Test Results: Chemistry 11/19/18 11/19/18 19:15 17:43 POC Sodium 137 mEq/L mEq/L (135-145) POC Potassium 7.1 mEq/L H* mEq/L (3.3-5.0) POC Chloride 99 mEq/L mEq/L (97-110) POC BUN 97 mg/dL H mg/dL (7-23) POC Creatinine 12.7 mg/dL H* mg/dL (0.7-1.3) POC Glucose 58 mg/dL L mg/dL 92 mg/dL mg/dL (70-100) (70-100) ISTAT H&H 11/19/18 17:43 POC Hgb 11.9 gm/dL L gm/dL (13.7-17.5) POC Hct 35 % L % (40-51) Departure - Departure Disposition: Against Medical Advice Clinical Impression: Renal failure, Hyperkalemia Condition: Good Instructions: Chronic Kidney Disease (ED), Hyperkalemia (ED) Additional Instructions: Read and follow provided instructions. Go to dialysis as scheduled at 5:45 a.m. Tomorrow morning. Take medication as discussed. Return to the emergency department for worsening symptoms or other serious concerns. Referrals: NONE *PRIMARY CARE P,. [Primary Care Provider] - As per Instructions
[2018-11-19] MEDS ORDERED: SODIUM POLY SULF 15 GM/60 ML BOTTLE PO ONE (18:40)
[2018-11-19 19:19] VITALS: BP 180/102
--- NOTE | 2018-11-19 20:55 | CPEKG ---
Test Reason : OPEN Blood Pressure : / mmHG Vent. Rate : 067 BPM Atrial Rate : 066 BPM P-R Int : 208 ms QRS Dur : 098 ms QT Int : 442 ms P-R-T Axes : -18 -01 059 degrees QTc Int : 467 ms Sinus rhythm Borderline prolonged VT interval Probable anteroseptal infarct, recent Confirmed by Amelie Holcomb ([id number]) on 11/19/2018 8:54:27 PM Referred By: Confirmed By:Amelie Holcomb
== END 2018-11-19 19:18 | disposition left against medical advice (07) ==
DX: N19 Unspecified kidney failure (principal); E87.5 Hyperkalemia; Z99.2 Dependence on renal dialysis
CPT/HCPCS: 82435-PO; 82565-PO; 82947-PO; 84132-PO; 84295-PO; 84520-PO; 85014-ER; 96374; J0610; J1815